=== PATIENT | male | born 1940 | race African-American/Black ===

== ENCOUNTER 2018-12-11 07:55 | Inpatient (IN) | payer MEDICARE, OTHER ==
[~2018-12-11] VITALS: Ht 180.3 cm; Wt 78.1 kg
[2018-12-11] VITALS (9 sets, daily range): BP systolic 137–156; BP diastolic 61–87
[~2018-12-11 07:55] MED LIST: ATOR10TA; BENA20TA77; CALC667C4; CLOP75TA4; FOLI1TAB63; METO-385; VITA1CAP9; ecotrin
[2018-12-11] MEDS ORDERED: SODIUM CHLORIDE 0.9% 1,000 ML IV ONE (08:07)
[2018-12-11 08:51] LABS: CHLORIDE 98 mEq/L (98-107)
[2018-12-11 08:55] LABS: BASOPHILS % 0.5 % (0.0-2.0); EOSINOPHILS % 3.6 % (0.0-5.0); HEMATOCRIT. 32.5 % (42.0-52.0); HEMOGLOBIN. 10.7 g/dL (14.0-18.0); LYMPHOCYTES % 17.6 % (20.0-50.0); MEAN CORPUSCULAR HEMOGLOBIN 28.1 pg (28.0-32.0); MEAN CORPUSCULAR VOLUME 85.2 fL (80.0-94.0); MEAN PLATELET VOLUME 8.3 fl (7.4-10.4); MONOCYTES % 6.4 % (2.0-8.0); NEUTROPHILS % 71.9 % (40.0-76.0); PLATELET 183 x1000/uL (130-400); RED BLOOD CELL COUNT 3.82 mill/uL (4.7-6.1); RED CELL DISTRIBUTION WIDTH 15.7 % (11.6-14.6)
[2018-12-11] MEDS ORDERED: PIPERACILLIN/TAZ 3.375G PREMIX 50 ML IV ONE (09:15)
[2018-12-11] MEDS ORDERED: VANCOMYCIN 1 G PREMIX 200 ML IV ONE (09:15)
[2018-12-11 09:32] LABS: PROTHROMBIN TIME 10.6 sec (9.6-11.0)
[2018-12-11 10:07] LABS: CLARITY URINE CLEAR (CLEAR); COLOR URINE YELLOW (YELLOW); KETONES URINE NEGATIVE (NEGATIVE); LEUKOCYTE ESTERASE URINE NEGATIVE (NEGATIVE); NITRITE URINE NEGATIVE (NEGATIVE); OCCULT BLOOD URINE 1+ (NEGATIVE); PH URINE >=9.0 (4.5-8.0); PROTEIN URINE 2+ (NEGATIVE); SPECIFIC GRAVITY URINE 1.012 (1.005-1.030); UROBILINOGEN URINE 0.2 E.U./dL (0.2-1.0)
[2018-12-11] MEDS: LANTHANUM CARBONATE 500MG CHEW TABLET PO SCH ×2 (15:57→18:00)
[2018-12-11] MEDS: ATORVASTATIN CALCIUM 10MG TABLET PO SCH (20:42)
[2018-12-11] MEDS: METOPROLOL TARTRATE 50MG TABLET PO SCH (20:43)
[2018-12-11] MEDS: BENAZEPRIL 10MG TABLET PO SCH (20:43)
[2018-12-11] MEDS ORDERED: ONDANSETRON HCL 4MG/2ML INJ IV PRN (21:45)
[2018-12-12 01:46] VITALS: BP 149/75
[2018-12-12 03:47] VITALS: BP 152/87
[2018-12-12] MEDS: METOCLOPRAMIDE HCL 10MG/2ML VIAL IV SCH ×4 (04:21→17:57)
[2018-12-12 07:18] LABS: BASOPHILS % 1.2 % (0.0-2.0); EOSINOPHILS % 6.9 % (0.0-5.0); HEMATOCRIT. 31.8 % (42.0-52.0); HEMOGLOBIN. 10.4 g/dL (14.0-18.0); LYMPHOCYTES % 17.7 % (20.0-50.0); MEAN CORPUSCULAR VOLUME 85.4 fL (80.0-94.0); MEAN PLATELET VOLUME 8.6 fl (7.4-10.4); MONOCYTES % 12.8 % (2.0-8.0); NEUTROPHILS % 61.4 % (40.0-76.0); PLATELET 180 x1000/uL (130-400); RED BLOOD CELL COUNT 3.73 mill/uL (4.7-6.1)
[2018-12-12 07:32] LABS: PHOSPHORUS 3.7 mg/dL (2.5-4.9)
[2018-12-12] MEDS: LANTHANUM CARBONATE 500MG CHEW TABLET PO SCH ×3 (08:00→17:57)
[2018-12-12] MEDS: CLOPIDOGREL 75MG TABLET PO SCH (09:00)
[2018-12-12] MEDS: ASPIRIN 81MG TABLET PO SCH (09:51)
[2018-12-12] MEDS: AMLODIPINE 5MG TABLET PO SCH (09:51)
[2018-12-12] MEDS: METOPROLOL TARTRATE 50MG TABLET PO SCH ×2 (09:52→23:00)
[2018-12-12] MEDS: BENAZEPRIL 10MG TABLET PO SCH ×2 (09:52→23:00)
[2018-12-12] MEDS: FOLIC ACID/VITAMIN B COMP W-C TABLET PO SCH (09:52)
[2018-12-12] MEDS ORDERED: SODIUM POLYSTYRENE SULFONATE 15 G/60 ML BOT PO NR (11:30)
[2018-12-12 20:01] VITALS: BP 186/67
[2018-12-12] MEDS ORDERED: EPOETIN ALFA 4000UNITS/ML VIAL SUBCUT SCH (21:00)
[2018-12-12 22:01] VITALS: BP 164/75
[2018-12-12 23:01] VITALS: BP 93/58
[2018-12-12] MEDS ORDERED: MORPHINE SULFATE 2 MG/ML CPJ (NOT FOR IM USE) IV PRN (23:15)
[2018-12-12 23:51] LABS: CREATINE KINASE MB FRACTION 1.3 ng/mL (0.5-3.6)
[2018-12-13] VITALS (10 sets, daily range): BP systolic 116–174; BP diastolic 57–80
[2018-12-13] MEDS: METOCLOPRAMIDE HCL 10MG/2ML VIAL IV SCH ×5 (00:16→23:26)
[2018-12-13] MEDS: FAMOTIDINE 20MG TABLET PO SCH ×2 (00:16→20:43)
[2018-12-13] MEDS: ATORVASTATIN CALCIUM 10MG TABLET PO SCH ×2 (00:24→20:43)
[2018-12-13 07:14] LABS: BASOPHILS % 0.9 % (0.0-2.0); EOSINOPHILS % 4.2 % (0.0-5.0); HEMATOCRIT. 34.3 % (42.0-52.0); HEMOGLOBIN. 11.1 g/dL (14.0-18.0); LYMPHOCYTES % 12.4 % (20.0-50.0); MEAN CORPUSCULAR HEMOGLOBIN 27.8 pg (28.0-32.0); MEAN CORPUSCULAR VOLUME 85.8 fL (80.0-94.0); MEAN PLATELET VOLUME 8.3 fl (7.4-10.4); MONOCYTES % 12.9 % (2.0-8.0); NEUTROPHILS % 69.6 % (40.0-76.0); PLATELET 180 x1000/uL (130-400); RED BLOOD CELL COUNT 3.99 mill/uL (4.7-6.1); RED CELL DISTRIBUTION WIDTH 15.6 % (11.6-14.6)
[2018-12-13] MEDS: METOPROLOL TARTRATE 50MG TABLET PO SCH ×2 (09:00→20:43)
[2018-12-13] MEDS: FOLIC ACID/VITAMIN B COMP W-C TABLET PO SCH (09:00)
[2018-12-13] MEDS: CLOPIDOGREL 75MG TABLET PO SCH (09:00)
[2018-12-13] MEDS: ASPIRIN 81MG TABLET PO SCH (09:00)
[2018-12-13] MEDS: LANTHANUM CARBONATE 500MG CHEW TABLET PO SCH ×2 (13:49→17:00)
[2018-12-13] MEDS ORDERED: DOCUSATE SODIUM 100MG CAPSULE PO PRN (15:30)
[2018-12-13] MEDS ORDERED: ACETAMINOPHEN 650MG SUPP PR PRN (15:30)
[2018-12-13] MEDS ORDERED: HYDRALAZINE 20MG/ML VIAL IV PRN (15:30)
[2018-12-13] MEDS ORDERED: DIPHENHYDRAMINE 50MG/ML VIAL IV PRN (15:30)
[2018-12-13] MEDS ORDERED: ACETAMINOPHEN 650MG/20.3ML UDC PO PRN (15:30)
[2018-12-13] MEDS: BENAZEPRIL 10MG TABLET PO SCH ×2 (15:50→20:43)
[2018-12-13 16:01] LABS: BG BASE EXCESS 4.6 mmol/L (-2.0-2.0); BG CARBOXYHEMOGLOBIN 0.6 % (0.5-1.5); BG DEOXYHEMOGLOBIN 2.6 % (0.0-5.0); BG FRACTION INSPIRED OXYGEN 21; BG HCO3 ACT 28.6 mmol/L (22.0-26.0); BG METHEMOGLOBIN 0.4 % (0.0-1.5); BG OXYGEN SATURATION 97.4 % (92.0-98.5); BG OXYHEMOGLOBIN 96.4 % (94.0-97.0); BG PCO2 40.2 mmHg (35.0-45.0); BG PO2 94.8 mmHg (75.0-100.0); BG SAMPLE SITE RIGHT BRACHIAL; BG TOTAL HEMOGLOBIN 13.1 g/dL (12.0-18.0); BG VENT MODE ROOM AIR
[2018-12-13] MEDS ORDERED: REGADENOSON 0.4 MG/5 ML IV NR (19:45)
[2018-12-14] VITALS (10 sets, daily range): BP systolic 128–158; BP diastolic 53–79
[2018-12-14] MEDS: METOCLOPRAMIDE HCL 10MG/2ML VIAL IV SCH ×2 (05:38→13:01)
[2018-12-14 06:49] LABS: HEMOGLOBIN 10.8 g/dL (14.0-18.0); MEAN CORPUSCULAR HEMOGLOBIN 28.3 pg (28.0-32.0); MEAN CORPUSCULAR VOLUME 85.9 fL (80.0-94.0); PLATELET 170 x1000/uL (130-400); RED BLOOD CELL COUNT 3.84 mill/uL (4.7-6.1); RED CELL DISTRIBUTION WIDTH 15.6 % (11.6-14.6)
[2018-12-14] MEDS: LANTHANUM CARBONATE 500MG CHEW TABLET PO SCH ×2 (08:00→13:00)
[2018-12-14] MEDS ORDERED: REGADENOSON 0.4 MG/5 ML IV ONE (08:42)
[2018-12-14] MEDS: METOPROLOL TARTRATE 50MG TABLET PO SCH ×2 (09:00→13:02)
[2018-12-14] MEDS: AMLODIPINE 5MG TABLET PO SCH ×2 (09:00→13:55)
[2018-12-14] MEDS: ASPIRIN 81MG TABLET PO SCH ×2 (09:00→13:02)
[2018-12-14] MEDS: FOLIC ACID/VITAMIN B COMP W-C TABLET PO SCH ×2 (09:00→13:02)
[2018-12-14] MEDS: BENAZEPRIL 10MG TABLET PO SCH ×2 (09:00→13:55)
[2018-12-14] MEDS: CLOPIDOGREL 75MG TABLET PO SCH ×2 (09:00→13:00)
== END 2018-12-14 17:15 | disposition home or self-care (01) | DRG 70 ==
LOC: ER 07:55 → EDBEDREQ 10:35 → EDBEDREQTM 10:35 → ENRESERV 10:43 → 5EST 11:22
PROVIDERS: ADMIT Internal Medicine; ATTEND Internal Medicine
PROC: 5A1D70Z Performance of Urinary Filtration, Intermittent, Less than 6 Hours Per Day (ICD-10-PCS; principal; 2018-12-12)
PROC: 5A1D70Z Performance of Urinary Filtration, Intermittent, Less than 6 Hours Per Day (ICD-10-PCS; 2018-12-14)
DX: G93.41 Metabolic encephalopathy (principal); N18.6 End stage renal disease; I13.2 Hypertensive heart and chronic kidney disease with heart failure and with stage 5 chronic kidney disease, or end stage renal disease; N25.81 Secondary hyperparathyroidism of renal origin; E87.2 Acidosis; E87.5 Hyperkalemia; I95.3 Hypotension of hemodialysis; E78.5 Hyperlipidemia, unspecified; D64.9 Anemia, unspecified; E11.22 Type 2 diabetes mellitus with diabetic chronic kidney disease; E11.319 Type 2 diabetes mellitus with unspecified diabetic retinopathy without macular edema; E11.40 Type 2 diabetes mellitus with diabetic neuropathy, unspecified; E11.51 Type 2 diabetes mellitus with diabetic peripheral angiopathy without gangrene; R31.9 Hematuria, unspecified; I80.9 Phlebitis and thrombophlebitis of unspecified site; I25.10 Atherosclerotic heart disease of native coronary artery without angina pectoris; I70.1 Atherosclerosis of renal artery; I50.9 Heart failure, unspecified; G90.8 Other disorders of autonomic nervous system; Z79.02 Long term (current) use of antithrombotics/antiplatelets; Z99.2 Dependence on renal dialysis; Z88.8 Allergy status to other drugs, medicaments and biological substances; Z79.899 Other long term (current) drug therapy; Z95.5 Presence of coronary angioplasty implant and graft; Z89.422 Acquired absence of other left toe(s); Z79.82 Long term (current) use of aspirin; Z82.49 Family history of ischemic heart disease and other diseases of the circulatory system; Z83.3 Family history of diabetes mellitus; Z95.820 Peripheral vascular angioplasty status with implants and grafts
CPT/HCPCS: 36415; 36600; 71045; 78452; 80048; 82375; 82550; 82553; 82805; 82962; 83605; 83615; 84100; 84145; 84484; 85027; 93005; 93017; 93306; 93970; 97116; 97162; 99285; A9500; C1893; J0360; J2405; J2543; J2765; J2785; J3370; J7030

== ENCOUNTER 2019-10-18 12:49 | Inpatient (IN) | payer MEDICARE, OTHER ==
[~2019-10-18] VITALS: Ht 180.3 cm; Wt 83.0 kg
[2019-10-18 15:47] LABS: BASOPHILS % 0.5 % (0.0-2.0); EOSINOPHILS % 3.6 % (0.0-5.0); HEMATOCRIT. 32.2 % (42.0-52.0); HEMOGLOBIN. 10.6 g/dL (14.0-18.0); LYMPHOCYTES % 10.6 % (20.0-50.0); MEAN CORPUSCULAR HEMOGLOBIN 27.2 pg (28.0-32.0); MEAN CORPUSCULAR VOLUME 82.7 fL (80.0-94.0); MEAN PLATELET VOLUME 7.8 fl (7.4-10.4); MONOCYTES % 12.3 % (2.0-8.0); PLATELET 230 x1000/uL (130-400); RED BLOOD CELL COUNT 3.89 mill/uL (4.7-6.1); RED CELL DISTRIBUTION WIDTH 17.2 % (11.6-14.6)
[2019-10-18 15:48] LABS: CHLORIDE 93 mEq/L (98-107)
[2019-10-18 15:51] LABS: PROTHROMBIN TIME 10.5 sec (9.6-11.0)
[2019-10-18] MEDS ORDERED: HYDRALAZINE HCL 100MG TABLET PO ONE (17:45)
[2019-10-19] VITALS (7 sets, daily range): BP systolic 130–161; BP diastolic 50–96
[2019-10-19] MEDS ORDERED: ACETAMINOPHEN 325MG TABLET PO PRN ×2 (02:30→17:00)
[2019-10-19] MEDS ORDERED: IPRATROPIUM/ALBUTEROL 0.5-3(2.5)MG/3ML NEB HHN PRN ×2 (02:30→17:00)
[2019-10-19 08:42] LABS: BG BASE EXCESS -0.6 mmol/L (-2.0-2.0); BG CARBOXYHEMOGLOBIN 0.1 % (0.5-1.5); BG DEOXYHEMOGLOBIN 6.4 % (0.0-5.0); BG HCO3 ACT 22.4 mmol/L (22.0-26.0); BG METHEMOGLOBIN 0.1 % (0.0-1.5); BG OXYGEN SATURATION 93.6 % (92.0-98.5); BG OXYHEMOGLOBIN 93.4 % (94.0-97.0); BG PCO2 31.1 mmHg (35.0-45.0); BG PH 7.476 (7.350-7.450); BG PO2 67.7 mmHg (75.0-100.0); BG SAMPLE SITE RIGHT RADIAL; BG TOTAL HEMOGLOBIN 10.2 g/dL (12.0-18.0); BG VENT MODE NASAL CANNULA
[2019-10-19] MEDS: PANTOPRAZOLE SODIUM 40 MG/VIAL IV SCH (12:11)
[2019-10-19] MEDS: ENOXAPARIN 30MG/0.3ML SYR SUBCUT SCH (12:13)
[2019-10-19 12:59] LABS: HEMATOCRIT. 31.5 % (42.0-52.0); HEMOGLOBIN. 10.3 g/dL (14.0-18.0); MEAN CORPUSCULAR VOLUME 82.4 fL (80.0-94.0); MEAN PLATELET VOLUME 7.6 fl (7.4-10.4); PLATELET 232 x1000/uL (130-400); RED BLOOD CELL COUNT 3.82 mill/uL (4.7-6.1); RED CELL DISTRIBUTION WIDTH 16.9 % (11.6-14.6)
[2019-10-19 13:09] LABS: CHLORIDE 95 mEq/L (98-107)
[2019-10-19 13:26] LABS: PLATELET ESTIMATE NORMAL
[2019-10-19] MEDS ORDERED: ACETAMINOPHEN 650MG SUPP PR PRN (17:00)
[2019-10-19] MEDS ORDERED: HYDROCODONE/ACETAMINOPHEN 5/325MG TABLET PO PRN (17:00)
[2019-10-19] MEDS ORDERED: DEXTROSE 50% WATER 50ML SYRINGE IV PRN (17:00)
[2019-10-19] MEDS ORDERED: LORAZEPAM 2MG/ML CPJ IV PRN (17:00)
[2019-10-19] MEDS ORDERED: BISACODYL 10MG SUPP PR PRN (17:00)
[2019-10-19] MEDS: INSULIN LISPRO 100 UNITS/ML SUBCUT SCH ×2 (17:20→21:00)
[2019-10-19] MEDS ORDERED: DOXYCYCLINE 100 MG in DEXT 5% WATER 100 ML IV SCH (18:30)
[2019-10-19] MEDS: BLOOD SUGAR DIAGNOSTIC STRIP TEST SCH (21:00)
[2019-10-19] MEDS: CEFEPIME 1,000 MG in DEXTROSE 5% WATER 50 ML IV SCH (23:25)
[2019-10-19] MEDS: METOPROLOL TARTRATE 25MG TABLET PO SCH (23:26)
[2019-10-19] MEDS: CLOPIDOGREL 75MG TABLET PO SCH (23:26)
[2019-10-20] VITALS: BP 165/59
[2019-10-20 04:00] VITALS: BP 148/48
[2019-10-20] MEDS: BLOOD SUGAR DIAGNOSTIC STRIP TEST SCH ×4 (07:10→21:21)
[2019-10-20] MEDS: INSULIN LISPRO 100 UNITS/ML SUBCUT SCH ×4 (07:10→21:00)
[2019-10-20] MEDS: PANTOPRAZOLE SODIUM 40 MG/VIAL IV SCH (08:59)
[2019-10-20] MEDS: CLOPIDOGREL 75MG TABLET PO SCH (09:00)
[2019-10-20] MEDS: METOPROLOL TARTRATE 25MG TABLET PO SCH (09:01)
[2019-10-20] MEDS: BENAZEPRIL 10MG TABLET PO SCH (09:02)
[2019-10-20] MEDS: ENOXAPARIN 30MG/0.3ML SYR SUBCUT SCH (09:04)
[2019-10-20] MEDS: FOLIC ACID/VITAMIN B COMP W-C TABLET PO SCH (09:19)
[2019-10-20] MEDS: ATORVASTATIN CALCIUM 20MG TABLET PO SCH (09:19)
[2019-10-20 10:35] LABS: BG BASE EXCESS -2.3 mmol/L (-2.0-2.0); BG CARBOXYHEMOGLOBIN 0.3 % (0.5-1.5); BG DEOXYHEMOGLOBIN 4.4 % (0.0-5.0); BG FRACTION INSPIRED OXYGEN 32; BG HCO3 ACT 21.3 mmol/L (22.0-26.0); BG METHEMOGLOBIN 0.2 % (0.0-1.5); BG OXYGEN SATURATION 95.6 % (92.0-98.5); BG OXYHEMOGLOBIN 95.1 % (94.0-97.0); BG PCO2 32.4 mmHg (35.0-45.0); BG PH 7.436 (7.350-7.450); BG SAMPLE SITE RIGHT RADIAL; BG TOTAL HEMOGLOBIN 10.4 g/dL (12.0-18.0); BG VENT MODE NASAL CANNULA
[2019-10-20 12:00] VITALS: BP 149/56
[2019-10-20 16:00] VITALS: BP 169/64
[2019-10-20] MEDS: DOXYCYCLINE HYCLATE 100MG CAPSULE PO SCH (19:24)
[2019-10-20 20:00] VITALS: BP 160/59
[2019-10-20] MEDS: CEFEPIME 1,000 MG in DEXTROSE 5% WATER 50 ML IV SCH (20:00)
[2019-10-20] MEDS: METOPROLOL TARTRATE 50MG TABLET PO SCH (21:21)
[2019-10-21 00:42] VITALS: BP 162/56
[2019-10-21 04:00] VITALS: BP 140/54
[2019-10-21] MEDS: BLOOD SUGAR DIAGNOSTIC STRIP TEST SCH ×4 (06:40→20:50)
[2019-10-21] MEDS: INSULIN LISPRO 100 UNITS/ML SUBCUT SCH ×4 (07:19→20:50)
[2019-10-21 07:37] VITALS: BP 172/59
[2019-10-21] MEDS: PANTOPRAZOLE SODIUM 40 MG/VIAL IV SCH (08:14)
[2019-10-21] MEDS: DOXYCYCLINE HYCLATE 100MG CAPSULE PO SCH ×2 (08:15→20:00)
[2019-10-21] MEDS: ATORVASTATIN CALCIUM 20MG TABLET PO SCH (08:15)
[2019-10-21] MEDS: ENOXAPARIN 30MG/0.3ML SYR SUBCUT SCH (08:15)
[2019-10-21] MEDS: FOLIC ACID/VITAMIN B COMP W-C TABLET PO SCH (08:15)
[2019-10-21] MEDS: CLOPIDOGREL 75MG TABLET PO SCH (08:15)
[2019-10-21] MEDS: BENAZEPRIL 10MG TABLET PO SCH (08:16)
[2019-10-21] MEDS: METOPROLOL TARTRATE 50MG TABLET PO SCH ×2 (08:16→20:50)
[2019-10-21 09:46] LABS: HEMATOCRIT 31.4 % (42.0-52.0); HEMOGLOBIN 10.3 g/dL (14.0-18.0); MEAN CORPUSCULAR HEMOGLOBIN 27.1 pg (28.0-32.0); MEAN CORPUSCULAR VOLUME 82.3 fL (80.0-94.0); PLATELET 244 x1000/uL (130-400); RED BLOOD CELL COUNT 3.81 mill/uL (4.7-6.1); RED CELL DISTRIBUTION WIDTH 16.5 % (11.6-14.6)
[2019-10-21] MEDS: AMLODIPINE 5MG TABLET PO SCH (10:43)
[2019-10-21 11:47] VITALS: BP 119/50
[2019-10-21 16:00] VITALS: BP 158/73
[2019-10-21] MEDS: HYDRALAZINE 20MG/ML VIAL IV PRN (17:39)
[2019-10-21] MEDS: CEFEPIME 1,000 MG in DEXTROSE 5% WATER 50 ML IV SCH ×2 (18:41→20:00)
[2019-10-21 20:29] VITALS: BP 118/52
[2019-10-22] VITALS: BP 134/46
[2019-10-22 04:30] VITALS: BP 146/49
[2019-10-22] MEDS: BLOOD SUGAR DIAGNOSTIC STRIP TEST SCH ×4 (06:37→20:59)
[2019-10-22] MEDS: INSULIN LISPRO 100 UNITS/ML SUBCUT SCH ×4 (07:26→20:58)
[2019-10-22 07:54] LABS: HEMATOCRIT 28.9 % (42.0-52.0); HEMOGLOBIN 9.2 g/dL (14.0-18.0); MEAN CORPUSCULAR HEMOGLOBIN 26.2 pg (28.0-32.0); MEAN CORPUSCULAR VOLUME 82.2 fL (80.0-94.0); PLATELET 233 x1000/uL (130-400); RED BLOOD CELL COUNT 3.51 mill/uL (4.7-6.1); RED CELL DISTRIBUTION WIDTH 16.7 % (11.6-14.6)
[2019-10-22 08:00] VITALS: BP 155/53
[2019-10-22] MEDS: ATORVASTATIN CALCIUM 20MG TABLET PO SCH (08:52)
[2019-10-22] MEDS: METOPROLOL TARTRATE 50MG TABLET PO SCH ×2 (08:52→20:58)
[2019-10-22] MEDS: FOLIC ACID/VITAMIN B COMP W-C TABLET PO SCH (08:52)
[2019-10-22] MEDS: BENAZEPRIL 10MG TABLET PO SCH (08:53)
[2019-10-22] MEDS: PANTOPRAZOLE SODIUM 40 MG/VIAL IV SCH (08:53)
[2019-10-22] MEDS: AMLODIPINE 5MG TABLET PO SCH (08:54)
[2019-10-22] MEDS: ENOXAPARIN 30MG/0.3ML SYR SUBCUT SCH (08:55)
[2019-10-22] MEDS: CLOPIDOGREL 75MG TABLET PO SCH (08:57)
[2019-10-22] MEDS: DOXYCYCLINE HYCLATE 100MG CAPSULE PO SCH ×2 (08:58→17:32)
[2019-10-22 11:31] LABS: BG BASE EXCESS -0.5 mmol/L (-2.0-2.0); BG CARBOXYHEMOGLOBIN 0.1 % (0.5-1.5); BG DEOXYHEMOGLOBIN 10.8 % (0.0-5.0); BG FRACTION INSPIRED OXYGEN 21; BG HCO3 ACT 22.9 mmol/L (22.0-26.0); BG METHEMOGLOBIN 0.1 % (0.0-1.5); BG OXYGEN SATURATION 89.2 % (92.0-98.5); BG PCO2 32.9 mmHg (35.0-45.0); BG PO2 57.8 mmHg (75.0-100.0); BG SAMPLE SITE RIGHT RADIAL; BG TOTAL HEMOGLOBIN 9.8 g/dL (12.0-18.0); BG VENT MODE ROOM AIR
[2019-10-22 12:00] VITALS: BP 141/96
[2019-10-22 16:00] VITALS: BP 163/48
[2019-10-22] MEDS: HYDRALAZINE 20MG/ML VIAL IV PRN (18:22)
[2019-10-22 20:00] VITALS: BP 158/52
[2019-10-22] MEDS: CEFEPIME 1,000 MG in DEXTROSE 5% WATER 50 ML IV SCH (20:46)
[2019-10-22] MEDS ORDERED: EPOETIN ALFA 4000UNITS/ML VIAL SUBCUT SCH (21:00)
[2019-10-23 00:26] VITALS: BP 146/60
[2019-10-23 04:00] VITALS: BP 159/53
[2019-10-23] MEDS: INSULIN LISPRO 100 UNITS/ML SUBCUT SCH ×4 (06:45→21:00)
[2019-10-23] MEDS: BLOOD SUGAR DIAGNOSTIC STRIP TEST SCH ×4 (06:45→21:00)
[2019-10-23 08:19] VITALS: BP 148/65
[2019-10-23] MEDS: ENOXAPARIN 30MG/0.3ML SYR SUBCUT SCH (10:28)
[2019-10-23] MEDS: DOXYCYCLINE HYCLATE 100MG CAPSULE PO SCH ×2 (10:28→18:39)
[2019-10-23] MEDS: CLOPIDOGREL 75MG TABLET PO SCH (10:28)
[2019-10-23] MEDS: AMLODIPINE 5MG TABLET PO SCH (10:29)
[2019-10-23] MEDS: ATORVASTATIN CALCIUM 20MG TABLET PO SCH (10:29)
[2019-10-23] MEDS: METOPROLOL TARTRATE 50MG TABLET PO SCH ×2 (10:29→22:03)
[2019-10-23] MEDS: FOLIC ACID/VITAMIN B COMP W-C TABLET PO SCH (10:29)
[2019-10-23] MEDS: PANTOPRAZOLE SODIUM 40 MG/VIAL IV SCH (10:30)
[2019-10-23] MEDS: BENAZEPRIL 10MG TABLET PO SCH (10:30)
[2019-10-23 15:42] LABS: BASOPHILS % 0.3 % (0.0-2.0); EOSINOPHILS % 1.2 % (0.0-5.0); HEMOGLOBIN. 10.3 g/dL (14.0-18.0); LYMPHOCYTES % 9.2 % (20.0-50.0); MEAN CORPUSCULAR HEMOGLOBIN 26.9 pg (28.0-32.0); MEAN PLATELET VOLUME 7.3 fl (7.4-10.4); MONOCYTES % 9.2 % (2.0-8.0); NEUTROPHILS % 80.1 % (40.0-76.0); PLATELET 260 x1000/uL (130-400); RED BLOOD CELL COUNT 3.83 mill/uL (4.7-6.1); RED CELL DISTRIBUTION WIDTH 16.9 % (11.6-14.6)
[2019-10-23] MEDS: CEFEPIME 1,000 MG in DEXTROSE 5% WATER 50 ML IV SCH (18:36)
[2019-10-23 18:57] VITALS: BP 151/81
[2019-10-23 20:00] VITALS: BP 164/37
[2019-10-24] VITALS: BP 141/46
[2019-10-24 04:00] VITALS: BP 158/53
[2019-10-24 07:28] LABS: HEMATOCRIT 28.8 % (42.0-52.0); HEMOGLOBIN 9.5 g/dL (14.0-18.0); MEAN CORPUSCULAR HEMOGLOBIN 27.1 pg (28.0-32.0); MEAN CORPUSCULAR VOLUME 82.1 fL (80.0-94.0); PLATELET 243 x1000/uL (130-400); RED BLOOD CELL COUNT 3.51 mill/uL (4.7-6.1); RED CELL DISTRIBUTION WIDTH 16.8 % (11.6-14.6)
[2019-10-24] MEDS: BLOOD SUGAR DIAGNOSTIC STRIP TEST SCH ×2 (07:34→12:20)
[2019-10-24] MEDS: INSULIN LISPRO 100 UNITS/ML SUBCUT SCH ×2 (07:50→12:50)
[2019-10-24 08:00] VITALS: BP 130/50
[2019-10-24] MEDS ORDERED: FAMOTIDINE 20MG TABLET PO SCH (09:00)
[2019-10-24] MEDS: ATORVASTATIN CALCIUM 20MG TABLET PO SCH (09:12)
[2019-10-24] MEDS: DOXYCYCLINE HYCLATE 100MG CAPSULE PO SCH (09:13)
[2019-10-24] MEDS: METOPROLOL TARTRATE 50MG TABLET PO SCH (09:13)
[2019-10-24] MEDS: FOLIC ACID/VITAMIN B COMP W-C TABLET PO SCH (09:13)
[2019-10-24] MEDS: BENAZEPRIL 10MG TABLET PO SCH (09:14)
[2019-10-24] MEDS: AMLODIPINE 5MG TABLET PO SCH (09:14)
[2019-10-24 11:04] LABS: BG BASE EXCESS -1.3 mmol/L (-2.0-2.0); BG CARBOXYHEMOGLOBIN 0.3 % (0.5-1.5); BG DEOXYHEMOGLOBIN 8.4 % (0.0-5.0); BG FRACTION INSPIRED OXYGEN 21; BG METHEMOGLOBIN 0.3 % (0.0-1.5); BG OXYGEN SATURATION 91.5 % (92.0-98.5); BG PCO2 31.7 mmHg (35.0-45.0); BG PH 7.459 (7.350-7.450); BG PO2 63.8 mmHg (75.0-100.0); BG SAMPLE SITE RIGHT RADIAL; BG TOTAL HEMOGLOBIN 9.7 g/dL (12.0-18.0); BG VENT MODE ROOM AIR
[2019-10-24 12:00] VITALS: BP 95/43
[2019-10-24] MEDS ORDERED: DOXY150T5 PO (13:33)
[2019-10-24] MEDS ORDERED: ALBU90AE INH (13:33)
[2019-10-24] MEDS ORDERED: AMOX125S13 MT (13:33)
[2019-10-24 14:32] VITALS: BP 102/40
== END 2019-10-24 17:27 | disposition home health service (06) | DRG 193 ==
LOC: ER 12:49 → 3WST 17:35 → EDBEDREQTM 17:39 → EDBEDREQ 17:39 → ENRESERV 10-19 00:05 → 7WST 10-19 17:35 → 6WST 10-21 16:30
PROVIDERS: ADMIT Internal Medicine; ATTEND Internal Medicine
PROC: 5A1D70Z Performance of Urinary Filtration, Intermittent, Less than 6 Hours Per Day (ICD-10-PCS; principal; 2019-10-19)
PROC: 5A1D70Z Performance of Urinary Filtration, Intermittent, Less than 6 Hours Per Day (ICD-10-PCS; 2019-10-23)
DX: J18.9 Pneumonia, unspecified organism (principal); J96.01 Acute respiratory failure with hypoxia; N18.6 End stage renal disease; D68.59 Other primary thrombophilia; J81.1 Chronic pulmonary edema; E87.1 Hypo-osmolality and hyponatremia; J91.8 Pleural effusion in other conditions classified elsewhere; I13.2 Hypertensive heart and chronic kidney disease with heart failure and with stage 5 chronic kidney disease, or end stage renal disease; Q61.3 Polycystic kidney, unspecified; E87.70 Fluid overload, unspecified; D63.1 Anemia in chronic kidney disease; D72.810 Lymphocytopenia; E11.22 Type 2 diabetes mellitus with diabetic chronic kidney disease; E78.5 Hyperlipidemia, unspecified; S91.119A Laceration without foreign body of unspecified toe without damage to nail, initial encounter; X58.XXXA Exposure to other specified factors, initial encounter; I25.10 Atherosclerotic heart disease of native coronary artery without angina pectoris; I50.9 Heart failure, unspecified; D64.9 Anemia, unspecified; Z99.2 Dependence on renal dialysis; Z79.02 Long term (current) use of antithrombotics/antiplatelets; Z79.899 Other long term (current) drug therapy; Z88.8 Allergy status to other drugs, medicaments and biological substances; Y93.89 Activity, other specified; Y92.89 Other specified places as the place of occurrence of the external cause; Y99.8 Other external cause status; Z03.818 Encounter for observation for suspected exposure to other biological agents ruled out
CPT/HCPCS: 36415; 36600; 71045; 71250; 80048; 80053; 82375; 82805; 82962; 83880; 84145; 84484; 85025; 85027; 87635; 93005; 97110; 97116; 97162; 99285; C9113; J0360; J0692; J0885; J1650; J1815; J3490; J7060